=== PATIENT | female | born 2005 | race Caucasian/White ===

== ENCOUNTER 2025-06-15 17:45 | Emergency (ER) | payer OTHER ==
[~2025-06-15] VITALS: Ht 172.7 cm; Wt 77.1 kg
[2025-06-15 19:12] LABS: PLATELET COUNT (AUTO) 221 K/uL (150-450); RED BLOOD CELL COUNT(AUTO) 4.47 MIL/uL (4.0-5.2); RED CELL DISTRIBUTION WIDTH 13.4 % (11.5-15.0); WHITE BLOOD COUNT (AUTO) 5.5 K/uL (4.3-11.0)
[2025-06-15 19:19] LABS: CALCIUM, SERUM 9.0 mg/dL (8.5-10.1); CREATININE 0.8 mg/dL (0.6-1.3); SODIUM SERUM 135.0 mmol/L (136-145); UREA NITROGEN, BLOOD 10.0 mg/dL (7-18)
[2025-06-15 19:23] LABS: INR 1.03 (0.91-1.10)
[2025-06-15] MEDS ORDERED: IBUP-1490 PO (20:30)
[2025-06-15 20:38] VITALS: BP 107/79; TEMP 98.3; O2SAT 98
== END 2025-06-15 20:39 | disposition home or self-care (01) ==
LOC: ER 17:49
DX: M79.604 Pain in right leg (principal); R22.41 Localized swelling, mass and lump, right lower limb; Z87.39 Personal history of other diseases of the musculoskeletal system and connective tissue
CPT/HCPCS: 36415; 80048-TC; 85025-TC; 85730-TC; 93971-TC